=== PATIENT | male | born 1965 | race Two or more races ===

== ENCOUNTER 2019-09-14 22:25 | Emergency (ER) | payer OTHER ==
[~2019-09-14] VITALS: Ht 170.2 cm; Wt 81.6 kg
[2019-09-14] MEDS ORDERED: ALBU8HFA4 INH (22:37)
[2019-09-14] MEDS ORDERED: GABA800T11 PO (22:37)
[2019-09-14] MEDS ORDERED: IMIP25TA6 PO (22:37)
[2019-09-14] MEDS ORDERED: PSEU120T99 PO (22:38)
[2019-09-14] MEDS ORDERED: LORA10TA7 PO (22:38)
--- NOTE | 2019-09-14 22:49 | NUR ---
Dr. Yang at bedside for MSE.
--- NOTE | 2019-09-14 23:02 | NUR ---
Xray at bedside.
[2019-09-14 23:13] LABS: BASOPHILS # (AUTO) 0.1 K/uL (0.0-8.0); BASOPHILS % (AUTO) 1.1 % (0.0-2.0); EOSINOPHILS # (AUTO) 0.2 K/uL (0.0-0.7); EOSINOPHILS % (AUTO) 2.8 % (0.0-7.0); HEMATOCRIT 43.5 % (36.7-47.1); HEMOGLOBIN 14.6 g/dL (12.5-16.3); LYMPHOCYTES # (AUTO) 1.7 K/uL (20.0-40.0); LYMPHOCYTES % (AUTO) 24.4 % (20.5-51.5); MEAN CORPUSCULAR HEMOGLOBIN 29.1 uug (23.8-33.4); MEAN CORPUSCULAR HGB CONC 34 g/dL (32.5-36.3); MEAN CORPUSCULAR VOLUME 86.5 fL (73.0-96.2); MONOCYTES # (AUTO) 0.6 K/uL (2.0-10.0); MONOCYTES % (AUTO) 8.3 % (0.0-11.0); NEUTROPHILS # (AUTO) 4.3 K/uL (1.8-8.9); NEUTROPHILS % (AUTO) 63.4 % (38.5-71.5); PLATELET COUNT (AUTO) 284 K/uL (152-348); RED BLOOD CELL COUNT(AUTO) 5.03 MIL/uL (4.06-5.63); WHITE BLOOD COUNT (AUTO) 6.8 K/uL (3.6-10.2)
[2019-09-14] MEDS ORDERED: IV NORMAL SALINE 500 ML BAG IV ONE (23:15)
[2019-09-14 23:18] LABS: CREATININE 1.1 mg/dL (0.6-1.3); POTASSIUM 3.8 mmol/L (3.5-5.1)
[2019-09-14 23:30] LABS: ETHANOL < 3 MG/DL (0-0)
[2019-09-14 23:34] LABS: TOTAL PROTEIN, SERUM 5.6 g/dL (6.4-8.2)
[2019-09-14 23:49] LABS: BILIRUBIN,DIRECT 0.2 mg/dL (0.0-0.2)
[2019-09-15] MEDS ORDERED: ASPIRIN EC 81 MG TABLET.DR PO SCH (01:00)
[2019-09-15] MEDS ORDERED: ASPIRIN EC 81 MG TABLET.DR PO ONE (01:02)
[2019-09-15 01:09] VITALS: BP 114/61
--- NOTE | 2019-09-15 01:09 | NUR ---
Patient discharged to home in stable condition. Written and verbal after care instructions given. Patient verbalizes understanding of instructions. Stressed follow up or return to ER for worsening s/s. Patient ambulated out of ER with steady gait, no acute signs of distress, VSS, all belongings taken, IV site discontinued.
== END 2019-09-15 01:10 | disposition home or self-care (01) ==
LOC: ER 22:25
DX: R07.9 Chest pain, unspecified (principal); R60.0 Localized edema; F17.210 Nicotine dependence, cigarettes, uncomplicated; Z76.5 Malingerer [conscious simulation]; G89.29 Other chronic pain; J44.9 Chronic obstructive pulmonary disease, unspecified; Z98.1 Arthrodesis status
CPT/HCPCS: 36415; 70030-TC; 71045; 85025; 85730; 93005; A4663; G0480